=== PATIENT | male | born 1960 | race Caucasian/White ===

== ENCOUNTER 2024-09-17 08:49 | Observation (INO) ==
[~2024-09-17 08:49] MED LIST: Lidocaine 2% PF 5 ML VIAL ONE; Midazolam 2 mg/2 ml VIAL 1 mg/ml 2 ml VIAL (2 mg) ONE; Naloxone 0.4 mg VIAL 0.4 mg/ml 1 ml VIAL IV PRN; Propofol 10 MG/ML 20 ML BTL ONE; fentaNYL 100 mcg/2 ml 50 MCG/ML VIAL ONE
[2024-09-17] MEDS ORDERED: cefTRIAXone 2 gm/50 mL D5W 2 GM/50 ML BAG IV ONE (09:05)
[2024-09-17 09:47] LABS: Rapid COVID-19 Molecular Undetected (Undetected)
[2024-09-17] MEDS ORDERED: Ondansetron 4 mg VIAL 2 MG/ML 2 ml VIAL ONE (09:55)
[2024-09-17] MEDS ORDERED: Dexamethasone IV 4 MG/ML VIAL 1 ml VIAL ONE (09:55)
[2024-09-17] MEDS ORDERED: Metoclopramide 5 MG/ML VIAL (10 mg) ONE (10:05)
[2024-09-17] MEDS ORDERED: Phenylephrine IV 10 MG/ML 1 ml VIAL ONE (10:09)
[2024-09-17] MEDS ORDERED: Furosemide 20 mg/2 ml IV VIAL ONE (10:31)
[2024-09-17] MEDS ORDERED: Propofol 10 MG/ML 20 ML BTL ONE (11:07)
[2024-09-17] MEDS ORDERED: Dextrose 50% Syringe 50 ml 25 GM/50 ML SYRINGE IV PUSH PRN (11:52)
[2024-09-17] MEDS ORDERED: fentaNYL 100 mcg/2 ml 50 MCG/ML VIAL ONE (12:58)
[2024-09-17] MEDS ORDERED: Acetaminophen IV 1 GM/100ML 1,000 MG/100 ML BAG IV ONE (12:58)
[2024-09-17] MEDS: Acetaminophen IV 1 GM/100ML 1,000 MG/100 ML BAG IV PRN (13:03)
[2024-09-17] MEDS: fentaNYL 100 mcg/2 ml 50 MCG/ML VIAL IV PRN (13:04)
[2024-09-17] MEDS: Lactated Ringers 1000 ml BAG 1,000 ML IV SCH ×2 (14:15→14:38)
[2024-09-17] MEDS: Buffered Lidocaine 1% SYRIN 1 ml INTRADERM ONE (14:38)
[2024-09-17] MEDS: oxyCODONE/Acetamin 5/325 mg TAB PO PRN (18:15)
[2024-09-18 06:23] VITALS: BP 122/87
[2024-09-18 06:48] LABS: Calcium 8.9 mg/dL (8.6-10.3); Creatinine, Serum 0.79 mg/dL (0.67-1.17); Potassium 4.5 mmol/L (3.5-5.0); eGFR CKD-EPI 98.6 (>60)
[2024-09-18] MEDS: cefTRIAXone 2 gm/50 mL D5W 2 GM/50 ML BAG IV SCH (09:26)
== END 2024-09-18 11:19 | disposition home or self-care (01) ==
LOC: SSU 08:49 → OR 08:49
PROVIDERS: ADMIT Urology; ATTEND Urology

== ENCOUNTER 2024-09-25 10:45 | Observation (INO) ==
[2024-09-25 14:05] LABS: ABS Basophils 0.1 10^3/uL (0.0-0.1); ABS Eosinophils 0.1 10^3/uL (0.0-0.5); ABS Lymphocytes 1.1 10^3/uL (1.0-4.8); ABS Monocytes 1.3 10^3/uL (0.0-1.1); ABS Neutrophils 8.9 10^3/uL (1.5-7.6); ABS Nucleated RBC 0.01 10^3/ul; Eosinophil % 0.5 %; Hematocrit 45.4 % (38-53); Hemoglobin 15.7 g/dL (13.2-16.3); Lymphocyte % 9.7 %; Mean Corpuscular Hemoglobin 31.7 pg (27-33); Mean Corpuscular Hgb Conc 34.6 g/dL (31-36); Mean Corpuscular Volume 91.6 fL (80-97); Mean Platelet Volume 6.8 fL (7.5-11.2); Platelet Count 346 10^3/uL (150-450); Red Blood Count 4.96 10^6/uL (4.06-5.63); Red Cell Distribution Width 12.5 % (12-17); White Blood Count 11.4 10^3/uL (3.6-10.2)
[2024-09-25 14:29] LABS: High Sens Troponin Baseline 5 pg/mL (<20)
[2024-09-25 15:09] LABS: ALT 18 U/L (7-52); Albumin 4.1 g/dL (3.5-5.7); Albumin/Globulin Ratio 1.2 (1-3); Alkaline Phosphatase 57 U/L (35-149); Anion Gap 7 mmol/L (2-16); Blood Urea Nitrogen 16 mg/dL (6-24); CO2 Carbon Dioxide 32 mmol/L (22-32); Calcium 9.1 mg/dL (8.6-10.3); Chloride 102 mmol/L (101-111); Globulin 3.3 g/dL (2-4); Glucose 106 mg/dL (70-100); Sodium 141 mmol/L (135-145); Total Bilirubin 0.6 mg/dL (0.2-1.0); Total Protein 7.4 g/dL (6.4-8.9); eGFR CKD-EPI 98.2 (>60)
[2024-09-25 15:24] LABS: High Sensitivity Troponin 1 Hr 6 pg/mL (<20)
[2024-09-25] MEDS: Iohexol 350 (CONTRAST) 500 ML MDV IV ONE (16:08)
[2024-09-25] MEDS ORDERED: Sulfur Hexaflouride MICROSPHR 25 MG VIAL IV PRN (20:21)
[2024-09-25 22:01] LABS: C Reactive Protein 254.25 mg/L (<8.01)
[2024-09-26 09:46] LABS: ABS Basophils 0.1 10^3/uL (0.0-0.1); ABS Eosinophils 0.2 10^3/uL (0.0-0.5); ABS Lymphocytes 1.6 10^3/uL (1.0-4.8); ABS Monocytes 1.4 10^3/uL (0.0-1.1); ABS Neutrophils 8.2 10^3/uL (1.5-7.6); ABS Nucleated RBC 0.01 10^3/ul; Eosinophil % 1.6 %; Hematocrit 44.6 % (38-53); Hemoglobin 15.2 g/dL (13.2-16.3); Lymphocyte % 13.7 %; Mean Corpuscular Hemoglobin 31.3 pg (27-33); Mean Corpuscular Volume 92.1 fL (80-97); Nucleated Red Blood Cells % 0.1 %/100WBC (0.0-0.8); Platelet Count 337 10^3/uL (150-450); Red Blood Count 4.84 10^6/uL (4.06-5.63); Red Cell Distribution Width 12.5 % (12-17); White Blood Count 11.4 10^3/uL (3.6-10.2)
[2024-09-26 10:33] LABS: Anion Gap 7 mmol/L (2-16); Blood Urea Nitrogen 17 mg/dL (6-24); CO2 Carbon Dioxide 29 mmol/L (22-32); Calcium 9.3 mg/dL (8.6-10.3); Chloride 102 mmol/L (101-111); Creatinine, Serum 0.98 mg/dL (0.67-1.17); Glucose 111 mg/dL (70-100); Sodium 138 mmol/L (135-145); eGFR CKD-EPI 85.6 (>60)
[2024-09-26 17:08] LABS: Magnesium 2.2 mg/dL (1.9-2.7)
[2024-09-27 06:21] LABS: ABS Basophils 0.1 10^3/uL (0.0-0.1); ABS Eosinophils 0.2 10^3/uL (0.0-0.5); ABS Lymphocytes 1.6 10^3/uL (1.0-4.8); ABS Monocytes 1.1 10^3/uL (0.0-1.1); ABS Neutrophils 6.8 10^3/uL (1.5-7.6); Eosinophil % 2.4 %; Hematocrit 42.7 % (38-53); Hemoglobin 14.4 g/dL (13.2-16.3); Lymphocyte % 16.1 %; Mean Corpuscular Hgb Conc 33.8 g/dL (31-36); Mean Corpuscular Volume 91.8 fL (80-97); Mean Platelet Volume 6.8 fL (7.5-11.2); Platelet Count 334 10^3/uL (150-450); Red Blood Count 4.65 10^6/uL (4.06-5.63); Red Cell Distribution Width 12.5 % (12-17); White Blood Count 9.7 10^3/uL (3.6-10.2)
[2024-09-27 06:45] LABS: Calcium 9.2 mg/dL (8.6-10.3); Potassium 4.1 mmol/L (3.5-5.0); eGFR CKD-EPI 83.5 (>60)
[2024-09-27 09:32] VITALS: BP 117/76
== END 2024-09-27 13:00 | disposition home or self-care (01) ==
LOC: EDHOLD 10:45 → ED 10:45 → SUATTDRO 19:51 → MED 09-26 07:35
PROVIDERS: ADMIT Hospitalist; ATTEND Internal Medicine